=== PATIENT | male | born 1935 | race Caucasian/White ===

== ENCOUNTER 2018-03-27 08:20 | Emergency (ER) | payer MEDICARE, BC ==
[2018-03-27 08:36] VITALS: BP 147/80
--- NOTE | 2018-03-27 08:54 | EDM.PDOC ---
ED HPI GENERAL MEDICAL PROBLEM - General Chief Complaint: ENT Problem Stated Complaint: nose bleed Time Seen by Provider: 03/27/18 08:35 Source of Information: Reports: Patient, Family History Limitations: Reports: No Limitations - History of Present Illness INITIAL COMMENTS - FREE TEXT/NARRATIVE: 83-year-old male with a left-sided epistaxis off and on for the past 3 days, this morning it's been bleeding for 2 hours and he can't get it stopped so he went into the clinic. He was sent over to the emergency room. He is on Coumadin. He has needed nasal packing 2 other times over the past 3 years.. Duration: Hour(s): (Left-sided bleeding for the past 3 hours) - Related Data Allergies Allergy/AdvReac Type Severity Reaction Status Date / Time No Known Allergies Allergy Verified 03/27/18 08:42 Home Meds: Home Meds Acetaminophen [Acetaminophen Extra Strength] 2 tab PO ASDIRECTED 02/28/15 [ History] Allopurinol 1 tab PO BEDTIME 02/28/15 [History] Aspirin 1 tab PO DAILY 02/28/15 [History] Furosemide 40 mg PO BID 02/28/15 [History] Lisinopril 1 tab PO DAILY 02/28/15 [History] Metoprolol Succinate 50 mg PO DAILY 02/28/15 [History] Niacin 1 tab PO BID 02/28/15 [History] Warfarin [Coumadin] 1 tab PO DAILY 02/28/15 [History] metFORMIN [Glucophage] 1 tab PO BID 02/28/15 [History] Past Medical History HEENT History: Reports: Cataract, Hard of Hearing, Impaired Vision Cardiovascular History: Reports: Afib, Hypertension, Pacemaker Respiratory History: Reports: Pneumonia, Recurrent Genitourinary History: Reports: Other (See Below) Other Genitourinary History: hydrocele hx. Musculoskeletal History: Reports: Fracture Neurological History: Reports: Concussion Endocrine/Metabolic History: Reports: Diabetes, Type II Hematologic History: Reports: Anticoagulation Therapy - Past Surgical History HEENT Surgical History: Reports: Cataract Surgery Cardiovascular Surgical History: Reports: Pacer GI Surgical History: Reports: Appendectomy, Cholecystectomy, Colonoscopy Social & Family History - Tobacco Use Smoking Status *Q: Never Smoker - Recreational Drug Use Recreational Drug Use: No ED ROS ENT - Review of Systems Review Of Systems: See Below Constitutional: Denies: Fever Respiratory: Denies: Shortness of Breath Neurological: Reports: Dizziness (A little lightheaded this morning) ED EXAM, ENT - Physical Exam Exam: See Below Exam Limited By: No Limitations General Appearance: Alert, No Apparent Distress Nose: Other (Left nares is packed with cotton, no active bleeding) Head: Atraumatic Respiratory/Chest: No Respiratory Distress Neurological: Alert, Oriented Skin: Warm, Dry Course - Vital Signs Last Recorded V/S: Last Vital Signs Temp 98 F 03/27/18 08:34 Pulse 71 03/27/18 08:34 Resp 16 03/27/18 08:34 BP 147/80 H 03/27/18 08:34 Pulse Ox 93 L 03/27/18 08:34 - Re-Assessments/Exams Free Text/Narrative Re-Assessment/Exam: 03/27/18 08:52 All the clots were blown out of the left side of the nares and pharynx and bleeding resume. A 5.5 cm rapid Rhino was placed without difficulty and inflated. This controlled the bleeding. He'll return tomorrow morning to remove the packing. Return sooner if bleeding recurs despite packing. Departure - Departure Time of Disposition: 09:12 Disposition: Home, Self-Care 01 Condition: Good Clinical Impression: Anterior epistaxis - Discharge Information Instructions: Nosebleed, [id number] Referrals: Doretha De La Torre PA [Primary Care Provider] - Forms: ED Department Discharge Care Plan Goals: Return tomorrow morning to remove the nasal packing. Return sooner if bleeding is occurring around the packing or you develop other concerns or complications.
== END 2018-03-27 09:12 | disposition home or self-care (01) ==
LOC: JP.ED 08:20
DX: R04.0 Epistaxis (principal); I48.91 Unspecified atrial fibrillation; I10 Essential (primary) hypertension; E11.9 Type 2 diabetes mellitus without complications; Z95.0 Presence of cardiac pacemaker; Z79.899 Other long term (current) drug therapy; Z79.82 Long term (current) use of aspirin; Z79.84 Long term (current) use of oral hypoglycemic drugs
CPT/HCPCS: 30901; 30903; 99282; 99283-25

== ENCOUNTER 2018-03-28 09:11 | Emergency (ER) | payer MEDICARE, BC ==
[2018-03-28 09:25] VITALS: BP 131/87
[2018-03-28] MEDS ORDERED: EPINEPHrine Nasal Soln 30 MG/30 ML Bottle NAS ONE (09:51)
[2018-03-28] MEDS ORDERED: Silver Nitrate Applicator Each ONE (10:18)
[2018-03-28] MEDS ORDERED: Silver Nitrate Applicator Each TOP ONE (10:20)
[2018-03-28] MEDS ORDERED: Bacitracin Oint 1 GM U/D Packet TOP ONE (10:23)
--- NOTE | 2018-03-28 11:20 | EDM.PDOC ---
ED HPI GENERAL MEDICAL PROBLEM - General Chief Complaint: ENT Problem Stated Complaint: REVISIT FROM NOSE BLEED YESTERDAY Time Seen by Provider: 03/28/18 11:06 Source of Information: Reports: Patient, Old Records History Limitations: Reports: No Limitations - History of Present Illness INITIAL COMMENTS - FREE TEXT/NARRATIVE: This gentleman comes in for a nosebleed. He was seen in the emergency department yesterday and a Rhino Rocket was inserted. He said during the night it has bled off and on. He's here today to have the thing removed. His INR was checked about 10 days ago he said it was a little bit below 3. He also takes aspirin 81 mg daily. - Related Data Allergies Allergy/AdvReac Type Severity Reaction Status Date / Time No Known Allergies Allergy Verified 03/28/18 09:22 Home Meds: Home Meds Acetaminophen [Acetaminophen Extra Strength] 2 tab PO ASDIRECTED 02/28/15 [ History] Allopurinol 1 tab PO BEDTIME 02/28/15 [History] Aspirin 1 tab PO DAILY 02/28/15 [History] Furosemide 40 mg PO BID 02/28/15 [History] Lisinopril 1 tab PO DAILY 02/28/15 [History] Metoprolol Succinate 50 mg PO DAILY 02/28/15 [History] Niacin 1 tab PO BID 02/28/15 [History] Warfarin [Coumadin] 1 tab PO DAILY 02/28/15 [History] metFORMIN [Glucophage] 1 tab PO BID 02/28/15 [History] Past Medical History HEENT History: Reports: Cataract, Hard of Hearing, Impaired Vision Cardiovascular History: Reports: Afib, Hypertension, Pacemaker Respiratory History: Reports: Pneumonia, Recurrent Gastrointestinal History: Reports: None Genitourinary History: Reports: Other (See Below) Other Genitourinary History: hydrocele hx. Musculoskeletal History: Reports: Fracture Neurological History: Reports: Concussion Endocrine/Metabolic History: Reports: Diabetes, Type II Hematologic History: Reports: Anticoagulation Therapy - Past Surgical History Head Surgeries/Procedures: Reports: None HEENT Surgical History: Reports: Cataract Surgery Cardiovascular Surgical History: Reports: Pacer GI Surgical History: Reports: Appendectomy, Cholecystectomy, Colonoscopy Social & Family History - Tobacco Use Smoking Status *Q: Never Smoker Second Hand Smoke Exposure: No - Caffeine Use Caffeine Use: Reports: None - Recreational Drug Use Recreational Drug Use: No ED ROS ENT - Review of Systems Review Of Systems: ROS reveals no pertinent complaints other than HPI. ED EXAM, ENT - Physical Exam Exam: See Below Exam Limited By: No Limitations General Appearance: Alert, WD/WN Nose: Other (There is a Rhino Rocket inserted in the left nostril. See treatment course) Mouth/Throat: Normal Inspection Course - Vital Signs Last Recorded V/S: Last Vital Signs Temp 36.3 C 03/28/18 09:25 Pulse 70 03/28/18 09:25 Resp 16 03/28/18 09:25 BP 131/87 03/28/18 09:25 Pulse Ox 97 03/28/18 09:25 - Orders/Labs/Meds Labs: Laboratory Tests 03/28/18 03/28/18 03/28/18 Range/Units 10:45 10:45 10:45 WBC 8.1 (4.5-11.0) K/uL RBC 4.82 (4.30-5.90) M/uL Hgb 15.4 H (12.0-15.0) g/dL Hct 45.3 (40.0-54.0) % MCV 94 (80-98) fL MCH 32 H (27-31) pg MCHC 34 (32-36) % Plt Count 173 (150-400) K/uL Neut % (Auto) 68 H (36-66) % Lymph % (Auto) 18 L (24-44) % Bell % (Auto) 10 H (2-6) % Eos % (Auto) 3 (2-4) % Baso % (Auto) 0 (0-1) % PT 30.5 H (9.5-12.0) sec INR 2.95 H (0.80-1.20) Sodium 137 L (140-148) mmol/L Potassium 4.1 (3.6-5.2) mmol/L Chloride 100 (100-108) mmol/L Carbon Dioxide 26 (21-32) mmol/L Anion Gap 15.1 H (5.0-14.0) mmol/L BUN 26 H (7-18) mg/dL Creatinine 1.4 H (0.8-1.3) mg/dL Est Cr Clr Drug Dosing 40.04 mL/min Estimated GFR (MDRD) 49 L (>60) Glucose 118 H (74-106) mg/dL Calcium 9.0 (8.5-10.1) mg/dL Meds: Medications Discontinued Medications Generic Name Dose Route Start Last Admin Trade Name Jordan PRN Reason Stop Dose Admin Bacitracin 1 dose 03/28/18 10:23 03/28/18 11:07 Bacitracin Oint 1 Gm TOP 03/28/18 10:24 1 dose ONETIME ONE Administration Epinephrine HCl 0.5 mg 03/28/18 09:51 03/28/18 09:57 Adrenalin Nasal Soln PROSPER 03/28/18 09:52 0.5 mg ONETIME ONE Administration Silver Nitrate Confirm 03/28/18 10:18 Silver Nitrate Administered 03/28/18 10:19 Dose 1 each .ROUTE .STK-MED ONE Silver Nitrate 1 each 03/28/18 10:20 03/28/18 10:22 Silver Nitrate TOP 03/28/18 10:21 1 each ONETIME ONE Administration - Re-Assessments/Exams Free Text/Narrative Re-Assessment/Exam: 03/28/18 11:16 The Rhino Rocket was deflated carefully removed from the left nostril that was the longer 7.5 cm. There was some large dark clot associated with it. He did continue to lose small amount of bright red blood. The septum was examined and there are 2 small papilla about 1 mm in diameter one of them is pulsating bright red blood. A nasal clip was placed after several minutes the bleeding was slowed down quite a bit. I used some epinephrine 1-1000 and placed a small cotton swab saturated with it on top of the patella. Pressure was placed on down and was able to get the thing to stop bleeding. Shortly afterwards began using a little bit and so I cauterized both papilla with silver nitrate. That stopped the bleeding but after a few minutes there was just a slight oozing. The nasal clip was then reinserted plans were to put in a 5 cm Rhino Rocket after some antibiotic ointment was applied. When the ready to do that however the bleeding had completely stopped. Therefore one packet of bacitracin ointment was then inserted and the nostril and I demonstrated how to spread it around. The second Rhino Rocket was never inserted. Labs were reviewed Departure - Departure Time of Disposition: 11:19 Disposition: Home, Self-Care 01 Condition: Fair Clinical Impression: Acute anterior epistaxis - Discharge Information Referrals: Doretha De La Torre PA [Primary Care Provider] - Additional Instructions: Apply antibiotic ointment twice daily to the nostril. Avoid rubbing it. Avoid blowing your nose. If it does bleed again use the nasal clip as shown. Continue all of your medications. Return to the ER as needed.
== END 2018-03-28 11:29 | disposition home or self-care (01) ==
LOC: JP.ED 09:11
DX: R04.0 Epistaxis (principal); E11.9 Type 2 diabetes mellitus without complications; I48.91 Unspecified atrial fibrillation; I10 Essential (primary) hypertension; Z95.0 Presence of cardiac pacemaker; Z79.899 Other long term (current) drug therapy; Z79.82 Long term (current) use of aspirin; Z79.01 Long term (current) use of anticoagulants; Z79.84 Long term (current) use of oral hypoglycemic drugs
CPT/HCPCS: 30901; 36415; 80048; 85025; 85610; 99282; 99284; A9270

== ENCOUNTER 2018-04-13 08:00 | Emergency (ER) | payer MEDICARE, BC ==
[2018-04-13 08:19] VITALS: BP 94/57
--- NOTE | 2018-04-13 08:41 | EDM.PDOC ---
ED HPI GENERAL MEDICAL PROBLEM - General Chief Complaint: ENT Problem Stated Complaint: NOSE BLEED Time Seen by Provider: 04/13/18 08:15 Source of Information: Reports: Patient, Old Records History Limitations: Reports: No Limitations - History of Present Illness INITIAL COMMENTS - FREE TEXT/NARRATIVE: 83 yo male was last here about 2 weeks ago for epistaxis. His provider on that visit was able to get his bleeding under control with cautery. He is on both a baby aspirin and warfarin daily. Today he bent over about an hour before arrival and developed brisk left sided nasal bleeding that has not stopped. Has humidifiers in his house and bedroom. Onset: Today Onset Date: 04/13/18 Onset Time: 07:15 Duration: Hour(s): (1), Constant Location: Reports: Face (L nares) Quality: Reports: Other (no pain) Severity: Severe Improves with: Reports: None Worsens with: Reports: None Context: Reports: Other (see HPI) Associated Symptoms: Reports: No Other Symptoms Treatments SCRAP CRUSHER: Reports: Other (see below) (atttempted nasal clamp application, but had it on incorrectly.) - Related Data Allergies Allergy/AdvReac Type Severity Reaction Status Date / Time No Known Allergies Allergy Verified 04/13/18 08:22 Home Meds: Home Meds Acetaminophen [Acetaminophen Extra Strength] 2 tab PO ASDIRECTED 02/28/15 [ History] Allopurinol 1 tab PO BEDTIME 02/28/15 [History] Aspirin 1 tab PO DAILY 02/28/15 [History] Furosemide 40 mg PO BID 02/28/15 [History] Lisinopril 1 tab PO DAILY 02/28/15 [History] Metoprolol Succinate 50 mg PO DAILY 02/28/15 [History] Niacin 1 tab PO BID 02/28/15 [History] Warfarin [Coumadin] 1 tab PO DAILY 02/28/15 [History] metFORMIN [Glucophage] 1 tab PO BID 02/28/15 [History] Past Medical History HEENT History: Reports: Cataract, Hard of Hearing, Impaired Vision, Other (See Below) Other HEENT History: recurring nose bleeds Cardiovascular History: Reports: Afib, Hypertension, Pacemaker Respiratory History: Reports: Pneumonia, Recurrent Gastrointestinal History: Reports: None Genitourinary History: Reports: Other (See Below) Other Genitourinary History: hydrocele hx. Musculoskeletal History: Reports: Fracture Neurological History: Reports: Concussion Endocrine/Metabolic History: Reports: Diabetes, Type II Hematologic History: Reports: Anticoagulation Therapy - Past Surgical History Head Surgeries/Procedures: Reports: None HEENT Surgical History: Reports: Cataract Surgery Cardiovascular Surgical History: Reports: Pacer Respiratory Surgical History: Reports: None GI Surgical History: Reports: Appendectomy, Cholecystectomy, Colonoscopy Social & Family History - Caffeine Use Caffeine Use: Reports: None ED ROS ENT - Review of Systems Review Of Systems: See Below Constitutional: Reports: No Symptoms HEENT: Reports: Nosebleed (left) Respiratory: Reports: No Symptoms Cardiovascular: Reports: No Symptoms Endocrine: Reports: No Symptoms GI/Abdominal: Reports: No Symptoms : Reports: No Symptoms Skin: Reports: No Symptoms ED EXAM, ENT - Physical Exam Exam: See Below Exam Limited By: No Limitations General Appearance: Alert, WD/WN, Mild Distress Eye Exam: Bilateral Eye: Normal Inspection Ears: Normal External Exam, Normal Canal, Hearing Loss (mild) Nose: Active Bleeding (brisk from L nares and from nasopharynx.). No: No Blood , Dried Blood Mouth/Throat: Normal Inspection, Normal Lips, Normal Oropharynx Head: Atraumatic, Normocephalic Neck: Normal Inspection Respiratory/Chest: No Respiratory Distress, Lungs Clear, Normal Breath Sounds, No Accessory Muscle Use Cardiovascular: Regular Rate, Rhythm Neurological: Alert, Oriented, CN II-XII Intact, Normal Cognition, No Motor/ Sensory Deficits Psychiatric: Normal Affect, Normal Mood Skin: Warm, Dry, Intact, Normal Color, No Rash Course - Vital Signs Text/Narrative:: Clots were expressed by blowing, a 7.5 cm Rhinorocket was placed in the L nares and 10 ml of air was injected into the unit. Bleeding was controlled with this. Last Recorded V/S: Last Vital Signs Temp 36.3 C 04/13/18 08:23 Pulse 69 04/13/18 08:23 Resp 16 04/13/18 08:23 BP 94/57 L 04/13/18 08:23 Pulse Ox 96 04/13/18 08:23 - Orders/Labs/Meds Labs: Laboratory Tests 04/13/18 04/13/18 Range/Units 08:23 08:23 Hgb 13.4 D (12.0-15.0) g/dL PT 28.7 H (9.5-12.0) sec INR 2.76 H (0.80-1.20) Departure - Departure Time of Disposition: 08:55 Disposition: Home, Self-Care 01 Condition: Good Clinical Impression: Left-sided epistaxis - Discharge Information *PRESCRIPTION DRUG MONITORING PROGRAM REVIEWED*: Not Applicable *COPY OF PRESCRIPTION DRUG MONITORING REPORT IN PATIENT BARBARA: Not Applicable Instructions: Nosebleed, [id number] Referrals: Doretha De La Torre PA [Primary Care Provider] - Forms: ED Department Discharge Additional Instructions: Hold warfarin and aspirin today and tomorrow. Leave RhinoRocket in your nose. Recheck in the clinic on Saturday afternoon for removal. Return as needed in the interim.
== END 2018-04-13 09:19 | disposition home or self-care (01) ==
LOC: JP.ED 08:00
DX: R04.0 Epistaxis (principal); Z79.82 Long term (current) use of aspirin; Z79.01 Long term (current) use of anticoagulants; I10 Essential (primary) hypertension; E11.9 Type 2 diabetes mellitus without complications; Z79.899 Other long term (current) drug therapy; I48.91 Unspecified atrial fibrillation
CPT/HCPCS: 30901; 30903; 36415; 85018; 85610; 99282; 99284-25

== ENCOUNTER 2021-09-01 18:53 | Inpatient (IN) | payer MEDICARE, BC ==
[2021-09-01 19:52] LABS: ESTIMATED GFR 25 mL/min (>60)
[2021-09-01 20:16] LABS: CORONAVIRUS COVID-19 NAA NEGATIVE (NEGATIVE)
[2021-09-01] MEDS ORDERED: Promethazine 6.25 MG in Sodium Chloride 0.9% 50 ML IV PRN (21:15)
[2021-09-01] MEDS ORDERED: Morphine 2 MG/ML SYRINGE IVPUSH PRN (21:15)
[2021-09-01] MEDS ORDERED: Ondansetron 4 MG Tab.DIS PO PRN (21:15)
[2021-09-01] MEDS ORDERED: oxyCODONE 5 MG Tab PO PRN (21:15)
[2021-09-01] MEDS ORDERED: Acetaminophen 325 MG Tab PO PRN (21:15)
[2021-09-01] MEDS ORDERED: LORazepam 2 MG/ML SDV IV PRN (21:15)
[2021-09-01] MEDS ORDERED: LORazepam 0.5 MG Tab PO SCH (22:00)
[2021-09-01] MEDS ORDERED: Donepezil 10 MG Tab PO ONE (23:00)
[2021-09-01] MEDS ORDERED: risperiDONE 0.5 MG Tab PO ONE (23:00)
[2021-09-02] MEDS: LORazepam 0.5 MG Tab PO PRN (06:39)
[2021-09-02] MEDS ORDERED: Bumetanide 1 MG Tab PO SCH (08:00)
[2021-09-02] MEDS: Lisinopril 10 MG Tab PO SCH (08:04)
[2021-09-02] MEDS: Citalopram 10 MG Tab PO SCH (08:04)
[2021-09-02] MEDS ORDERED: Furosemide 20 MG/2 ML VIAL IVPUSH SCH (09:00)
[2021-09-02] MEDS ORDERED: Bumetanide 2.5 MG/10 ML MDV IVPUSH SCH (09:00)
[2021-09-02] MEDS ORDERED: Bumetanide 1 MG Tab PO ONE (09:15)
[2021-09-02] MEDS ORDERED: Haloperidol Lactate 5 MG/ML SDV IVPUSH PRN (09:18)
[2021-09-02] MEDS ORDERED: risperiDONE 0.5 MG Tab PO SCH ×2 (12:00→21:00)
[2021-09-02] MEDS: Bumetanide 1 MG Tab PO SCH (15:14)
[2021-09-02] MEDS: Metoprolol Succinate 50 MG Tab.ER PO SCH (20:51)
[2021-09-02] MEDS: Melatonin 3 MG Tab PO SCH (20:52)
[2021-09-02] MEDS: Donepezil 10 MG Tab PO SCH (20:52)
[2021-09-03] MEDS: LORazepam 0.5 MG Tab PO PRN (02:35)
[2021-09-03] MEDS: Bumetanide 1 MG Tab PO SCH (07:41)
[2021-09-03] MEDS ORDERED: Haloperidol 5 MG Tab PO PRN (08:49)
[2021-09-03] MEDS: Citalopram 10 MG Tab PO SCH (09:17)
[2021-09-03] MEDS: Lisinopril 10 MG Tab PO SCH (09:19)
[2021-09-03] MEDS: Divalproex Sodium Delayed-Release 250 MG Tab.CR PO SCH ×2 (09:19→17:55)
[2021-09-03] MEDS ORDERED: OLANZapine 10 MG Vial IM ONE (11:00)
[2021-09-03] MEDS ORDERED: OLANZapine 10 MG Vial IM PRN (16:30)
[2021-09-03] MEDS: Metoprolol Succinate 50 MG Tab.ER PO SCH (20:35)
[2021-09-03] MEDS: Melatonin 3 MG Tab PO SCH (20:35)
[2021-09-03] MEDS: Donepezil 10 MG Tab PO SCH (20:36)
[2021-09-03] MEDS: OLANZapine 5 MG Tab PO PRN (20:37)
[2021-09-04] MEDS: OLANZapine 5 MG Tab PO PRN ×3 (02:50→15:23)
[2021-09-04] MEDS: LORazepam 0.5 MG Tab PO PRN ×2 (08:14→16:14)
[2021-09-04] MEDS: Bumetanide 1 MG Tab PO SCH (08:14)
[2021-09-04] MEDS: Citalopram 10 MG Tab PO SCH (08:14)
[2021-09-04] MEDS: Divalproex Sodium Delayed-Release 250 MG Tab.CR PO SCH ×2 (08:14→16:15)
[2021-09-04] MEDS: Lisinopril 10 MG Tab PO SCH (08:15)
[2021-09-04] MEDS: Melatonin 3 MG Tab PO SCH (21:27)
[2021-09-04] MEDS: OLANZapine 5 MG Tab PO SCH (21:27)
[2021-09-04] MEDS: Donepezil 10 MG Tab PO SCH (21:27)
[2021-09-04] MEDS: Metoprolol Succinate 50 MG Tab.ER PO SCH (21:37)
[2021-09-05] MEDS: Divalproex Sodium Delayed-Release 250 MG Tab.CR PO SCH ×2 (09:25→17:34)
[2021-09-05] MEDS: Citalopram 10 MG Tab PO SCH (09:25)
[2021-09-05] MEDS: Bumetanide 1 MG Tab PO SCH (09:25)
[2021-09-05] MEDS: Lisinopril 10 MG Tab PO SCH (09:27)
[2021-09-05] MEDS: Melatonin 3 MG Tab PO SCH (21:24)
[2021-09-05] MEDS: Metoprolol Succinate 50 MG Tab.ER PO SCH (21:26)
[2021-09-05] MEDS: Donepezil 10 MG Tab PO SCH (21:26)
[2021-09-05] MEDS: OLANZapine 5 MG Tab PO SCH (21:30)
[2021-09-06] MEDS: OLANZapine 5 MG Tab PO PRN ×2 (00:22→08:40)
[2021-09-06] MEDS: Bumetanide 1 MG Tab PO SCH (08:40)
[2021-09-06] MEDS: LORazepam 0.5 MG Tab PO PRN (08:40)
[2021-09-06] MEDS: Citalopram 10 MG Tab PO SCH (08:41)
[2021-09-06] MEDS: Divalproex Sodium Delayed-Release 250 MG Tab.CR PO SCH (08:41)
[2021-09-06 10:00] VITALS: BP 135/69; PULSE 69
[2021-09-06] MEDS: Lisinopril 10 MG Tab PO SCH (10:42)
[2021-09-06 12:49] LABS: CORONAVIRUS COVID-19 NAA NEGATIVE (NEGATIVE)
== END 2021-09-06 16:00 | DRG 57 ==
LOC: JP.ED 18:53 → JP.MS 21:15
PROVIDERS: ADMIT Family Medicine; ATTEND Hospitalist
DX: I50.9 Heart failure, unspecified (principal); G30.9 Alzheimer's disease, unspecified; G30.1 Alzheimer's disease with late onset; I13.0 Hypertensive heart and chronic kidney disease with heart failure and stage 1 through stage 4 chronic kidney disease, or unspecified chronic kidney disease; E11.51 Type 2 diabetes mellitus with diabetic peripheral angiopathy without gangrene; F02.81 Dementia in other diseases classified elsewhere, unspecified severity, with behavioral disturbance; N18.9 Chronic kidney disease, unspecified; N18.4 Chronic kidney disease, stage 4 (severe); N17.9 Acute kidney failure, unspecified; I48.20 Chronic atrial fibrillation, unspecified; R44.3 Hallucinations, unspecified; I50.22 Chronic systolic (congestive) heart failure; Z20.822 Contact with and (suspected) exposure to COVID-19; E11.22 Type 2 diabetes mellitus with diabetic chronic kidney disease; H91.90 Unspecified hearing loss, unspecified ear; H54.7 Unspecified visual loss; I48.91 Unspecified atrial fibrillation; Z79.01 Long term (current) use of anticoagulants; Z79.84 Long term (current) use of oral hypoglycemic drugs; Z79.899 Other long term (current) drug therapy; Z95.0 Presence of cardiac pacemaker; Z87.01 Personal history of pneumonia (recurrent)
CPT/HCPCS: 0241U; 36415; 71045; 80048; 80053; 81001; 82947; 83880; 85025; 85610; 99233; 99238; 99285; A9270-GY; J3490